=== PATIENT | female | born 1945 | race Caucasian/White ===

== ENCOUNTER 2017-12-11 12:48 | Emergency (ER) | payer OTHER, MEDICARE ==
[~2017-12-11] VITALS: Ht 157.5 cm; Wt 94.7 kg
[~2017-12-11 12:48] MED LIST: ALEVE220 MG PO; ALTACE5 MG PO; AUGMENTIN875 MG PO; CALCIUM 600 +1 EAC1 PO; CALICUM 500+D1 EACH PO; CIPRO500 MG PO; DOXYCYCLINE HY100 M3 PO; FLAGYL500 MG PO; FLOMAX0.4 MG PO; IMODIUM MS REL1 EACH PO; MELOXICAM15 MG PO; METAMUCIL POWD798 GM PO; MONTELUKAST SOD10 MG PO; NEOSPORIN ANT70.8 GM TP; NORCO 5/3251 TABLET PO; OMEPRAZOLE20 M2 PO; PERCOCET 5/31 TABLET PO; QVAR 80 MCG IN7.3 GM IH; SINGULAIR10 MG PO; TRAMADOL HCL50 MG PO; TYLENOL WITH C1 EACH PO; VALIUM2 MG PO; ZYRTEC10 M2 PO; [UNRECOGNIZED DRUG - OTHER] TP
[2017-12-11 13:23] LABS: HEMATOCRIT 46.1 % (36.0-46.0); HEMOGLOBIN 15.8 G/DL (11.9-15.5); MCHC 34.3 G/DL (30.0-36.0); MCV 93.5 FL (83-99); PLATELET COUNT 281 K/uL (156-360); RBC DIS.WIDTH-CV 12.2 % (11.8-14.6); RBC DIS.WIDTH-SD 42.6 % (39-53); RED BLOOD COUNT 4.93 M/uL (3.80-5.20); WHITE BLOOD COUNT 12.5 K/uL (4.1-10.2)
[2017-12-11 13:31] LABS: CHLORIDE 105 mEq/L (99-109); POTASSIUM 3.9 mEq/L (3.7-5.4); SODIUM 139 mEq/L (136-147)
[2017-12-11 13:33] LABS: GLUCOSE 129 mg/dL (70-99); TOTAL PROTEIN 7.6 g/dL (6.4-8.3)
[2017-12-11 13:35] LABS: TOTAL BILIRUBIN 1.6 mg/dL (0.0-1.0)
[2017-12-11 13:37] LABS: ALKALINE PHOSPHATASE 133 IU/L (3-129); CREATININE 0.8 mg/dL (0.6-1.3); GFR ESTIMATE (CALCULATED) > 59 mL/min/
[2017-12-11 13:38] LABS: UREA NITROGEN (BUN) 12 mg/dL (9-23)
[2017-12-11 13:39] LABS: AST (GOT) 19 IU/L (2-34)
[2017-12-11 13:40] LABS: ALT (GPT) 11 IU/L (3-49); LIPASE 46 U/L (1.0-51.0)
[2017-12-11 14:42] LABS: APPEARANCE CLOUDY ((CLEAR)); BILIRUBIN SMALL; BLOOD NEGATIVE; COLOR DK YELLOW ((YELLOW)); GLUCOSE (STRIP) NEGATIVE; KETONES NEGATIVE; LEUKOCYTES SMALL; NITRITE NEGATIVE; PROTEIN (STRIP) 100
[2017-12-11 15:06] LABS: BACTERIA 1+ /HPF; EPITHELIAL CELLS 2+ /HPF; MUCUS 2+ /LPF; RED BLOOD CELLS 0-5 /HPF (0-5); UCUL ADDED? NO; WHITE BLOOD CELLS 0-5 /HPF (0-5)
[2017-12-11] MEDS ORDERED: CIPRO500 MG PO (17:16)
[2017-12-11] MEDS ORDERED: NORCO 5/3251 TABLET PO (17:16)
[2017-12-11] MEDS ORDERED: FLAGYL500 MG PO (17:16)
[2017-12-11 17:59] VITALS: BP 132/76
== END 2017-12-11 18:26 | disposition home or self-care (01) ==
LOC: EME 12:48
DX: K57.32 Diverticulitis of large intestine without perforation or abscess without bleeding (principal); K21.9 Gastro-esophageal reflux disease without esophagitis; J44.9 Chronic obstructive pulmonary disease, unspecified; I10 Essential (primary) hypertension; F17.200 Nicotine dependence, unspecified, uncomplicated
CPT/HCPCS: 74177; 80053; 81003; 83690; 85027; 99281; 99285; J2270; J7040